=== PATIENT | male | born 1985 | race Caucasian/White ===

== ENCOUNTER 2017-11-06 05:58 | Emergency (ER) | payer SELFPAY ==
[2017-11-06 06:26] VITALS: BP 133/83; PULSE 62; RESP 16; TEMP 36.1; O2SAT 98; BMI 24.3
--- NOTE | 2017-11-06 06:39 | DI.CT.S_ITS ---
PROCEDURE: CT KIDNEY URETER BLADDER (KUB) INDICATIONS: right flank pain TECHNIQUE: Noncontrast 5 mm thick sections acquired from the diaphragms to the symphysis. 5 mm thick coronal and sagittal reformats were then performed. For radiation dose reduction, the following was used: automated exposure control, adjustment of mA and/or kV according to patient size. COMPARISON: None. FINDINGS: Image quality: Excellent. Lung bases: Lung bases are clear. Heart size is normal. Urinary system: Both kidneys are normal in size. No kidney stones. No hydronephrosis or perinephric fat stranding. There is an ill-defined 11 mm low density in the right kidney on (series 2 image 29). There is increased density in renal pyramids bilaterally which may represent medullary nephrocalcinosis. Both ureters appear non-dilated throughout their expected courses. Bladder wall thickness is normal; no calcified bladder stones. Other solid organs: Liver is normal in size. Gallbladder is present. Pancreas is normal in contours. Spleen is normal in size. No adrenal nodules. Peritoneum and bowel: Unenhanced bowel loops demonstrate normal wall thickness and caliber. No free fluid or air. Appendectomy. Nodes and vessels: No retroperitoneal or mesenteric adenopathy by size criteria. Aorta and inferior vena cava are normal in caliber. Abdominal wall: No ventral hernias. Pelvis: No free pelvic fluid. No inguinal hernias or adenopathy. Bones: No suspicious bony lesions. T11 vertebral body compression fracture with approximately 25% height loss of unknown age. IMPRESSION: No renal or ureteral calculi. No hydronephrosis or ureterectasis. Low-density right renal nodule may represent a cyst but is indeterminate. Recommend correlation with ultrasound for confirmation. Age-indeterminate T11 superior endplate compression fracture. If clinical exam cannot determine acuity of this finding a noncontrast MRI could evaluate for acuity. Possible medullary nephrocalcinosis. There are no urgent discrepancies with the preliminary report. Dictated by: Mesfin Petit M.D. on 11/06/2017 at 9:39 Approved by: Mesfin Petit M.D. on 11/06/2017 at 9:46
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
[2017-11-06] MEDS: KETOROLAC 60 MG/2 ML VIAL 30 MG IV (06:58)
[2017-11-06 07:07] LABS: Add Manual Diff / Slide Review NO; Basophils Percent Auto 0.4 % (0-2); Eosinophils Percent Auto 2.2 % (2-4); Hematocrit 43.8 % (41-53); Hemoglobin 14.9 g/dL (13.5-17.5); Lymphocytes Percent Auto 37.5 % (25-40); Mean Corpuscular HGB Conc 33.9 % (30-36); Mean Corpuscular Volume 82.5 fL (80-100); Monocytes Percent Auto 15.9 % (3-14); Neutrophils Absolute Auto 1800 /uL (3000-5900); Platelet Count 205 X10^3/uL (150-400); Red Blood Cell Count 5.31 X10^6/uL (4.5-5.9); Red Cell Distribution Width 13.6 % (11.6-14.8); White Blood Cell Count 4.1 X10^3/uL (4.5-11.0)
[2017-11-06 07:12] LABS: BUN Creatinine Ratio 21.3 (6-22); Calcium 9.3 mg/dL (8.4-10.2); Estimated Glomerular Filt Rate > 60.0 mL/min (>60); Glucose 95 mg/dL (70-100); HEMOLYSIS < 15 (0-50); Potassium 3.8 mmol/L (3.4-5.1); Sodium 144 mmol/L (137-145)
[2017-11-06 07:27] LABS: Appearance Urine UA CLEAR; Bilirubin Urine UA NEGATIVE (NEGATIVE); Color Urine UA YELLOW; Glucose Urine UA NEGATIVE (NEGATIVE); Ketones Urine UA NEGATIVE (NEGATIVE); Leukocyte Esterase Urine UA NEGATIVE (NEGATIVE); Nitrite Urine UA NEGATIVE (NEGATIVE); Occult Blood Urine UA TRACE-LYSED (NEGATIVE); Protein Urine UA TRACE (NEGATIVE); Specific Gravity Urine UA >=1.030 (1.000-1.035); Urobilinogen Urine UA 0.2 E.U./dL (0.2); pH Urine UA 5.5 (4.5-8.0)
[2017-11-06 07:46] VITALS: BP 123/80; PULSE 64; RESP 16; TEMP 36.7; O2SAT 98
[2017-11-06 08:07] LABS: Culture Indicated Urine Cult Not Indicated; Mucus Urine 2+ (Negative); RBC Urine 0-1/HPF (0-5/HPF); Squamous Epithelial Cell Urine 0-1 /HPF; WBC Urine 0-1/HPF (0-5/HPF)
== END 2017-11-06 09:09 | disposition home or self-care (01) ==
PROVIDERS: Emergency Medicine; Emergency Provider Emergency Medicine
DX: M54.9 Dorsalgia, unspecified (principal)
CPT/HCPCS: 74176; 80048; 81001; 85025; 96374; 99283; 99284; J1885

== ENCOUNTER 2017-11-08 07:28 | Emergency (ER) | payer SELFPAY ==
[2017-11-08 07:33] VITALS: BP 132/82; PULSE 67; RESP 15; TEMP 36.4; O2SAT 100
--- NOTE | 2017-11-08 07:37 | ED.BACK ---
HPI - Back Pain/Injury General Chief Complaint: Back Pain/Injury Stated Complaint: rash,herniated disk Time Seen by Provider: 11/08/17 07:31 Source: patient Mode of arrival: ambulatory Limitations: no limitations History of Present Illness HPI Narrative: Patient returns to the emergency department with a chief complaint of right flank pain but now he has the presence of a red rash wrapping around his flank nearly to his groin. He describes it is painful, tingly and itchy. This rash was not present when he was seen few days ago MD Complaint: back pain Onset (ago): day(s) Duration: constant Similar Symptoms Previously: Yes Location: right flank Severity: moderate Quality: burning, sharp and tingling Radiation: groin Relieving factors: none Exacerbating factors: movement Associated symptoms: denies other symptoms Related Data Previous Rx's Medication Instructions Recorded hydrocodone-acetaminophen 1 tab PO Q4-6H PRN #14 tab 11/08/17 valacyclovir 1,000 mg PO TID 10 Days #30 tab 11/08/17 Allergies Allergy/AdvReac Type Severity Reaction Status Date / Time No Known Drug Allergies Allergy Verified 11/08/17 07:36 Review of Systems Review of Systems All systems reviewed & are unremarkable except as noted in HPI and below Constitutional Denies chills, Denies fever(s), Denies lethargy and Denies weakness Eyes Denies change in vision, Denies eye discharge, Denies irritation and Denies loss of vision Cardiovascular Denies chest pain, Denies irregular heart rhythm, Denies lightheadedness, Denies palpitations, Denies dyspnea, Denies dyspnea on exertion and Denies orthopnea Respiratory Denies cough, Denies dyspnea, Denies dyspnea on exertion and Denies wheezing Gastrointestinal Gastrointestinal: Denies abdominal pain, Denies change in bowel habits, Denies diarrhea, Denies nausea and Denies vomiting Genitourinary Denies hematuria, Denies flank pain, Denies urinary incontinence and Denies urinary urgency Musculoskeletal Denies back pain, Denies muscle weakness, Denies numbness and Denies tingling Integumentary/Breasts Denies pruritus, Denies erythema, Reports rash and Denies wounds Comments: Clear fluid-filled blisters on an erythematous base, consistent with shingles Neurologic Denies loss of vision, Denies numbness, Denies tingling and Denies weakness Endocrine Denies palpitations Hematologic/Lymphatic Denies easy bruising Allergic/Immunologic Denies wheezing PFSH Social History Smoking Status: Never smoker Exam Narrative Exam Narrative: Healthy appearing 32-year-old male in mild distress Const General: cooperative and well developed Nutritional Appearance: well nourished Orientation: alert, awake, oriented x3 and not confused HENMT Head: normocephalic and atraumatic Ears: external ears normal and TM's normal bilaterally Nose: external nose normal and No nasal discharge Face and sinus: sinuses nontender, face symmetric, no sinus tenderness and No dry mucous membranes Mouth: oral mucosae normal and moist mucous membranes Teeth and gingiva: dentition normal Throat: tonsils normal and uvula midline Eyes General: appearance normal, both eyes and all related structures Eyelids: eyelids normal Conjunctivae: conjunctivae normal Sclera: sclerae normal Pupils: PERRL EOM: EOM intact bilaterally Resp Effort & Inspection: normal respiratory effort, able to speak in complete sentences, no respiratory distress and no use of accessory muscles Auscultation: clear to auscultation bilaterally, no rales, no rhonchi and no wheezes Cardio Rate: regular rate Rhythm: regular rhythm Heart Sounds: no click, no gallops, no murmurs and no rubs Pulses: normal peripheral pulses Back/Spine/Pelvis Back: back tenderness and warmth Thoracic/Lumbar Spine: thoraco-lumbar ROM normal and No mass Skin General: erythema, No jaundice and No petechiae Rashes: rashes noted (Clear fluid-filled blisters on an erythematous base in a single dermatomal distribution on right flank) Neuro General: alert, oriented x3, gait normal and no focal motor deficits Cranial Nerves: CN's II-XI intact bilaterally Speech: speech normal Motor: strength 5/5 throughout Sensory Exam: no sensory deficits noted Extrem General: full ROM, no clubbing, cyanosis or edema, no pedal edema and no calf tenderness Course Last Vital Signs Temp 97.6 F 11/08/17 07:33 Pulse 67 11/08/17 07:33 Resp 15 11/08/17 07:33 BP 132/82 H 11/08/17 07:33 Pulse Ox 100 11/08/17 07:33 Discharge Plan Departure Patient Disposition: Home, Self-Care Clinical Impression: Shingles Discharge Date/Time: 11/08/17 08:12 Interventions: ED Discharge Assessment Last Done: 11/08/17 08:08 Instructions: DI for Shingles Activity Restrictions/Additional Instructions: There is no evidence of an emergent or life threatening illness at this time, but follow up with your doctor in 1-2 days is recommended nonetheless to continue to rule out serious underlying causes of your symptoms. Please call the office for an appointment. Please return to the Emergency Department for any worsening or persistent symptoms. Please take medications as directed. You have been prescribed narcotic medications. While on these medications you cannot drive or operate heavy machinery. Additionally you cannot sign legal documents or perform any duties such as this. 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 Please understand that we cannot provide further refills of narcotics or controlled substances through the ED and your pain management will need to be through your Primary Care Provider Prescriptions: New valacyclovir 1 gram tablet 1,000 mg PO TID 10 Days Qty: 30 RF: 0 hydrocodone-acetaminophen 5-325 mg tablet 1 tab PO Q4-6H PRN (Reason: pain) Qty: 14 RF: 0 Referrals: [facility] [Outside] [facility] [Outside]
== END 2017-11-08 08:12 | disposition home or self-care (01) ==
PROVIDERS: Emergency Provider Emergency Medicine
DX: B02.9 Zoster without complications (principal)
CPT/HCPCS: 99282

== ENCOUNTER → 2019-11-16 11:28 | Outpatient (CLI) | payer OTHER, SELFPAY ==
[2019-11-17 11:05] LABS: COVID19 Sendout NOT DETECTED
== END ==
PROVIDERS: Visit Provider Registered Nurse
DX: Z11.59 Encounter for screening for other viral diseases (principal)
CPT/HCPCS: 87635

== ENCOUNTER → 2020-04-16 07:40 | Outpatient (CLI) | payer OTHER, SELFPAY ==
[2020-04-16 09:09] LABS: Cholesterol 140 mg/dL (140-199); HDL Cholesterol 57 mg/dL (40-60); LDL Cholesterol Calculated 71 mg/dL (<100); Triglycerides 60 mg/dL (35-150)
[2020-04-16 09:11] LABS: Hemoglobin A1C% w Est Avg Glu 5.5 % (4.0-6.0)
== END ==
PROVIDERS: PCP Family Medicine; Referring Provider Family Medicine; Visit Provider Family Medicine
DX: Z00.01 Encounter for general adult medical examination with abnormal findings (principal); F12.90 Cannabis use, unspecified, uncomplicated; Z13.1 Encounter for screening for diabetes mellitus
CPT/HCPCS: 36415; 80061; 83036